=== PATIENT | female | born 1935 | race Caucasian/White ===

== ENCOUNTER → 2017-03-23 | Outpatient (CLI) | payer MEDICARE, BC ==
[~2017-03-23] MED LIST: ADVAIR 100/28 DISKU1 IH; ADVAIR IH; ASPIRIN 81M81 MG/TA2 PO; ASPIRIN E.C. 8181 MG PO; BENICAR; BENICAR 20MG TA20 MG PO; BENICAR HCT 12.1 TAB PO; BENICAR HCT 251 TAB PO; CALCIUM600 M2 PO; CEFTIN 250250 MG/TAB PO; CEPHALEXIN500 M1 PO; CIPRO 500MG TA500 MG PO; COLESTIPOL1 GM PO; COZAAR100 MG PO; ENTOCORT EC3 MG PO; FLAGYL500 MG PO; IMDUR 60MG60 MG/TAB PO; LEVAQUIN 750MG750 M1 PO; LEVOTHYROXIN0.025 MG; LEVOTHYROXINE0.05 MG PO; LIPITOR20 MG PO; LOMOTIL TAB 01 UDTAB PO; LOPERAMIDE2 MG PO; LOPRESSOR 550 MG/TAB PO; NORCO 325 MG-51 TAB PO; OPIUM PO; PERCOCET 325 MG1 TA2 PO; PLAVIX 75MG TAB75 MG PO; POTASSIUM CL 220 MEQ PO; PRIL40 PO; PROTONIX 40MG T40 MG PO; RT ADVAIR 128 DISKUS IH; SYNTHROID0.05 MG/TA PO; SYNTHROID0.125 MG/T PO; TOPROL PO; TOPROL XL 25MG25 MG PO; TOPROL XL 50MG50 MG PO; TOPROL XL25 MG PO; TOPROL XL50 MG PO; TRIMPEX100 MG PO; VITAMIN B12500 MCG PO; VITAMIN D31000 IU PO; ZOCOR; ZOCOR 20MG20 MG PO; ZOCOR 40MG40 MG PO
== END ==
LOC: COL.RAD 13:30
DX: M16.11 Unilateral primary osteoarthritis, right hip (principal)
CPT/HCPCS: J3301; Q9967

== ENCOUNTER → 2017-04-07 | Outpatient (CLI) | payer MEDICARE, BC | LOC: COL.RAD 03-29 14:00 | DX: Z01.812 Encounter for preprocedural laboratory examination (principal); G31.9 Degenerative disease of nervous system, unspecified | CPT/HCPCS: A9585 ==

== ENCOUNTER 2017-04-22 11:02 | Emergency (ER) | payer MEDICARE, BC ==
[~2017-04-22] VITALS: Ht 147.3 cm; Wt 77.3 kg
[2017-04-22 11:05] VITALS: TEMP 98.7
[2017-04-22 12:46] VITALS: BP 133/71; PULSE 81
== END 2017-04-22 12:53 | disposition home or self-care (01) ==
LOC: COL.ER 11:02
DX: S09.90XA Unspecified injury of head, initial encounter (principal); S70.01XA Contusion of right hip, initial encounter; M16.11 Unilateral primary osteoarthritis, right hip; W18.39XA Other fall on same level, initial encounter; W22.8XXA Striking against or struck by other objects, initial encounter; Y92.002 Bathroom of unspecified non-institutional (private) residence as the place of occurrence of the external cause

== ENCOUNTER → 2017-05-11 | Outpatient (CLI) | payer MEDICARE, BC ==
[2017-05-11 15:00] VITALS: BP 151/73; PULSE 84
[2017-05-11 15:15] VITALS: BP 146/75; PULSE 81
[2017-05-11 15:30] VITALS: BP 150/69; PULSE 80
[2017-05-11 16:15] VITALS: BP 133/64; PULSE 82
[2017-05-11 16:24] LABS: SYNOVIAL FL. MONONUCLEAR 45.8 % (0-75); SYNOVIAL FL. POLYMORPHONUCLEAR 54.2 % (0-25); SYNOVIAL FLUID RBC 29000 /mm3 (0-0); SYNOVIAL FLUID WBC 715 /mm3 (200-600)
[2017-05-11 16:28] LABS: SYNOVIAL FLUID APPEARANCE CLOUDY; SYNOVIAL FLUID COLOR BROWN
== END ==
LOC: COL.RAD 05-10 10:45
PROVIDERS: Orthopaedic Surgery
DX: M25.551 Pain in right hip (principal)
CPT/HCPCS: Q9967

== ENCOUNTER → 2021-12-25 | Outpatient (CLI) | payer MEDICARE, BC | LOC: ZCOL.LAB 15:25 | DX: I51.89 Other ill-defined heart diseases (principal) ==

== ENCOUNTER 2022-04-18 15:00 | Inpatient (IN) | payer MEDICARE, BC ==
[~2022-04-18] VITALS: Ht 149.9 cm; Wt 87.1 kg
[2022-04-18 15:35] LABS: BASO # 0.1 K/mm3 (0.0-0.2); EOS # 0.1 K/mm3 (0.0-0.7); EOS % 1.7 % (0.0-4.0); GRAN # 6.3 K/mm3 (1.4-6.5); GRAN % 75.7 % (42.2-75.2); HEMATOCRIT 38.8 % (37.0-47.0); HEMOGLOBIN 12.6 g/dl (12.5-16.0); LYMPH # 1.1 K/mm3 (1.2-3.4); MEAN CELL VOLUME 84 fl (80.0-100.0); MEAN CORPUSCULAR HEMOGLOBIN 27 pg (27-31); MEAN CORPUSCULAR HGB CONC 33 g/dl (33.0-37.0); MEAN PLATELET VOLUME 11.4 fl (7.4-10.4); MONO # 0.7 K/mm3 (0.1-0.6); MONO % 8.2 % (1.7-9.3); PLATELET COUNT 239 K/mm3 (130-400); RED BLOOD COUNT 4.63 M/mm3 (4.10-5.30); REDCELL DISTRIBUTION WIDTH-CV 13.2 % (11.5-14.5)
[2022-04-18 15:46] LABS: INR 1.2 (0.8-3.0); PROTHROMBIN TIME 13.8 SECONDS (9.7-12.8)
[2022-04-18 15:48] LABS: PARTIAL THROMBOPLASTIN TIME 34.3 SECONDS (26.0-37.0)
[2022-04-18 15:54] LABS: COLLECTION METHOD CLEAN CATCH
[2022-04-18 15:54] LABS: ALANINE AMINOTRANSFERASE 18 U/L (0-55); ALBUMIN 3.7 gm/dL (3.4-4.8); ALKALINE PHOSPHATASE 88 U/L (40-150); ANION GAP 12 mmol/L (7-16); AST,SGOT 18 U/L (5-34); BLOOD UREA NITROGEN 10 mg/dL (10-20); CALCIUM 9.5 mg/dL (8.4-10.2); CARBON DIOXIDE 26 mmol/L (23-31); CHLORIDE 103 mmol/L (98-107); CREATININE, serum 0.79 mg/dL (0.57-1.11); GLUCOSE 123 mg/dL (70-99); POTASSIUM 3.1 mmol/L (3.5-4.5); SODIUM 141 mmol/L (136-145); TOTAL PROTEIN 7.3 gm/dL (6.2-8.1)
[2022-04-18 15:55] LABS: URINE APPEARANCE Clear (CLEAR/HAZY); URINE COLOR Yellow (YELLOW)
[2022-04-18 15:57] LABS: URINE BLOOD TRACE-INTACT (NEGATIVE); URINE GLUCOSE Negative (NEGATIVE); URINE KETONE Negative (NEGATIVE); URINE NITRATE Negative (NEGATIVE); URINE PROTEIN(semi-quant) Negative (NEGATIVE); URINE UROBILINOGEN 0.2 E.U/dL (0.2-1.0)
[2022-04-18 16:01] LABS: ALCOHOL(ethanol),MEDICAL < 10 mg/dL (0-10)
[2022-04-18 16:01] LABS: SQUAMOUS EPITHELIAL None Seen /hpf (0-10); URINE BACTERIA None Seen /hpf (NONE SEEN)
[2022-04-18] MEDS ORDERED: ENTRESTO 24 MG1 EACH PO (21:37)
[2022-04-18] MEDS ORDERED: ISOSORBIDE MON120 MG PO (21:37)
[2022-04-18] MEDS ORDERED: LOPRESSOR100 MG PO (21:37)
[2022-04-18] MEDS ORDERED: JARDIANCE10 PO (21:38)
[2022-04-18 22:14] VITALS: BP 168/72; PULSE 86; TEMP 98.8
[2022-04-18] MEDS ORDERED: NORCO 325 MG-51 TAB PO (22:18)
[2022-04-19 02:41] LABS: MAGNESIUM 1.6 mg/dL (1.6-2.6)
[2022-04-19 03:02] LABS: TSH w REFLEX 0.287 uIU/mL (0.350-4.940)
[2022-04-19 03:07] LABS: PHOSPHOROUS 2.7 mg/dL (2.3-4.7)
[2022-04-19 03:59] VITALS: BP 155/83; PULSE 93; TEMP 98
--- NOTE | 2022-04-19 06:34 | NUR ---
PATIENT RESTED QUIETLY THIS SHIFT. PATIENT HAD PERIODS OF CALLING OUT AND BEING CONCERNED ABOUT NEEDING TO GET TO DOCTOR'S APPT TODAY. PATIENT HAD CRITICAL TROPONIN. PROVIDER NOTIFIED WITH NO NEW ORDERS. PATIENT ALSO NOTED TO BE SPEAKING IN OTHER LANGUAGES AT TIMES. PATIENT GIVEN PRN TYLENOL FOR C/O HEADACHE.
[2022-04-19 07:26] VITALS: BP 155/71; PULSE 88
[2022-04-19 07:26] LABS: BASO # 0.1 K/mm3 (0.0-0.2); BASO % 0.8 % (0.0-2.0); EOS # 0.4 K/mm3 (0.0-0.7); EOS % 4.7 % (0.0-4.0); GRAN # 4.9 K/mm3 (1.4-6.5); GRAN % 64.3 % (42.2-75.2); HEMOGLOBIN 11.3 g/dl (12.5-16.0); LYMPH # 1.3 K/mm3 (1.2-3.4); LYMPH % 16.8 % (20.0-51.0); MEAN CELL VOLUME 88 fl (80.0-100.0); MEAN CORPUSCULAR HEMOGLOBIN 27 pg (27-31); MEAN CORPUSCULAR HGB CONC 31 g/dl (33.0-37.0); MEAN PLATELET VOLUME 12.1 fl (7.4-10.4); PLATELET COUNT 217 K/mm3 (130-400); RED BLOOD COUNT 4.15 M/mm3 (4.10-5.30); REDCELL DISTRIBUTION WIDTH-CV 13.4 % (11.5-14.5)
[2022-04-19 07:28] LABS: C-REACTIVE PROTEIN 1.6 mg/dL (0.00-0.50); CALCIUM 8.7 mg/dL (8.4-10.2); CHOLESTEROL RISK RATIO 2.5; CREATININE, serum 0.78 mg/dL (0.57-1.11); HEMATOCRIT 36.7 % (37.0-47.0); POTASSIUM 3.5 mmol/L (3.5-4.5)
[2022-04-19 11:41] VITALS: BP 136/74; PULSE 86; TEMP 99
--- NOTE | 2022-04-19 15:10 | NUR ---
fruit worker met with patient "Sabra" to discuss discharge plan. Patients daughter Laura ([phone]) and niece Radha are present at bedside. Patient is extremely hard of hearing. Patient lives at home in an apartment alone here in [place]. She is independent with her ADL's and IADL's. PCP is and she utilizes [facility] for prescriptions. Patient utilizes a rollator walker to assist with mobility and has no home oxygen needs. She does have a DPO[facility] established listing both Daniela and her son Ronnie ([phone]). SW discussed possible post acute rehab. Laura states that she is in agreement with this and would like a referral sent to [facility], [facility] and our [facility]. Discharge plan: SNF
[2022-04-19 16:06] VITALS: BP 141/89; PULSE 83; TEMP 97.5
--- NOTE | 2022-04-19 19:30 | NUR ---
Tx given via mask, tolerated well. Pt stated that she prefers to use her home inhaler and will have her son bring it in tomorrow. Pt on room air before and after tx.
[2022-04-19 20:08] VITALS: BP 179/73; PULSE 95; TEMP 98.6
--- NOTE | 2022-04-19 22:43 | NUR ---
Patient alert and oriented, INT to LFA and RAC, remains on room air, head to to toe assessment done, complained of left knee pain scheduled Troy given, still with kelly catheter draining clear yellow urine, noted weakness to left upper extremeties and both lower extremeties, no further needs or concerns at this time, will continue to monitor, call light and personal items within reach.
[2022-04-19 23:53] VITALS: BP 156/92; PULSE 90; TEMP 98.9
--- NOTE | 2022-04-20 00:37 | NUR ---
Patient sleeping in bed at this time, looks comfortable, call light and personal items within reach.
[2022-04-20 04:16] VITALS: BP 150/60; PULSE 90; TEMP 99.3
--- NOTE | 2022-04-20 04:37 | NUR ---
Patient noted to be speaking AMHARIC and keeps calling "DIYOS" which means God, informed Sudha the PA due to patient wanting to have a biofreeze for her left knee and got an order for Bengay.
--- NOTE | 2022-04-20 06:14 | NUR ---
Patient kept talking kiswahili and was pointing to her bottom, this nurse was trying to check her bottom but refuses to turn and screamed, charge nurse made aware. Patient also refused to take her pills this morning charge nurse informed as well.
[2022-04-20 06:22] LABS: BASO % 0.5 % (0.0-2.0); EOS # 0.4 K/mm3 (0.0-0.7); EOS % 5.1 % (0.0-4.0); GRAN % 69.8 % (42.2-75.2); HEMOGLOBIN 10.9 g/dl (12.5-16.0); LYMPH # 1.1 K/mm3 (1.2-3.4); LYMPH % 12.2 % (20.0-51.0); MEAN CELL VOLUME 88 fl (80.0-100.0); MEAN CORPUSCULAR HEMOGLOBIN 27 pg (27-31); MEAN CORPUSCULAR HGB CONC 31 g/dl (33.0-37.0); MONO % 12.1 % (1.7-9.3); PLATELET COUNT 204 K/mm3 (130-400); RED BLOOD COUNT 4.02 M/mm3 (4.10-5.30); REDCELL DISTRIBUTION WIDTH-CV 13.2 % (11.5-14.5)
[2022-04-20 06:31] LABS: HEMATOCRIT 35.4 % (37.0-47.0)
[2022-04-20 06:44] LABS: CALCIUM 8.9 mg/dL (8.4-10.2); CREATININE, serum 0.79 mg/dL (0.57-1.11); MAGNESIUM 1.6 mg/dL (1.6-2.6); POTASSIUM 3.7 mmol/L (3.5-4.5)
[2022-04-20 07:40] VITALS: BP 174/63; PULSE 94; TEMP 98.5
--- NOTE | 2022-04-20 09:26 | NUR ---
Pt. sitting up in bed. Pt. is alert and confused at this time. Pt. speaking in mexican. When this nurse tells the pt. "I don't speak mexican". Then the pt. will sometimes speak martiniquais. Attempted to give am meds, Pt. first in mexican then in martiniquais, "I am not a child, I do not need fed". Attempted again to get pt. to take the spoon of crushed meds and pt. refused. Unable to give am meds. Pt. also refused to turn for skin assessment. Will continue to monitor.
--- NOTE | 2022-04-20 10:55 | NUR ---
IVETTE consulted [facility] Director, Viki. IVETTE contacted and faxed a referral to [facility] and [facility] Awaiting screens.
[2022-04-20 12:45] VITALS: BP 175/64; PULSE 100; TEMP 99.2
[2022-04-20 17:27] VITALS: BP 159/66; PULSE 88; TEMP 98.8
[2022-04-20 20:20] VITALS: BP 165/56; PULSE 96; TEMP 98.4
--- NOTE | 2022-04-20 22:53 | NUR ---
PT A&OX3 RESTING IN BED. MEDS GIVEN AND ASSESSMENT COMPLETE. ROPER TO DD W YELLOW URINE OUTPUT. INT TO RAC AND LF. VSS AND TELE IN PLACE. NO NEEDS AT THIS TIME. CALL LIGHT WITHIN REACH.
[2022-04-21] VITALS: BP 163/64; PULSE 71
[2022-04-21 04:00] VITALS: BP 189/59; PULSE 77; TEMP 98.4
[2022-04-21 06:55] LABS: BASO # 0.1 K/mm3 (0.0-0.2); BASO % 0.6 % (0.0-2.0); EOS # 0.9 K/mm3 (0.0-0.7); GRAN # 5.2 K/mm3 (1.4-6.5); GRAN % 61.9 % (42.2-75.2); HEMOGLOBIN 11.6 g/dl (12.5-16.0); LYMPH # 1.3 K/mm3 (1.2-3.4); LYMPH % 15.2 % (20.0-51.0); MEAN CELL VOLUME 85 fl (80.0-100.0); MEAN CORPUSCULAR HEMOGLOBIN 28 pg (27-31); MEAN CORPUSCULAR HGB CONC 33 g/dl (33.0-37.0); MEAN PLATELET VOLUME 11.8 fl (7.4-10.4); MONO # 0.9 K/mm3 (0.1-0.6); MONO % 10.8 % (1.7-9.3); PLATELET COUNT 212 K/mm3 (130-400); RED BLOOD COUNT 4.18 M/mm3 (4.10-5.30); REDCELL DISTRIBUTION WIDTH-CV 13.2 % (11.5-14.5)
[2022-04-21 07:20] LABS: CALCIUM 8.9 mg/dL (8.4-10.2); CREATININE, serum 0.79 mg/dL (0.57-1.11); POTASSIUM 3.8 mmol/L (3.5-4.5)
[2022-04-21 07:22] LABS: HEMATOCRIT 35.4 % (37.0-47.0)
[2022-04-21 07:51] VITALS: PULSE 80; TEMP 99.1
--- NOTE | 2022-04-21 08:00 | NUR ---
Pt. sitting up in bed. Pt. is alert and oriented but forgetful. Pt. does get very upset with staff when ever we attempt to reposition or take vital signs. Pt. Does take am meds today. INT's to lt. forearm and rt. ac. Pt. denies needs, call light within reach.
[2022-04-21 09:42] VITALS: BP 152/82
[2022-04-21] MEDS ORDERED: PLAVIX 75MG TAB75 MG PO (09:49)
[2022-04-21] MEDS ORDERED: ASPIRIN E.C. 8181 MG PO (09:50)
[2022-04-21] MEDS ORDERED: NORVASC 5MG5 MG/TAB PO (09:50)
[2022-04-21] MEDS ORDERED: LIPITOR 40MG TA40 MG PO (09:50)
--- NOTE | 2022-04-21 11:04 | NUR ---
IVETTE attended clinical rounds. The team is ready to discharge the patient today. IVETTE contacted [facility] and [facility] and they are both able to accept the patient today. IVETTE attempted to contact the patient's daughter, Laura. IVETTE left her a voicemail. IVETTE then contacted the patient's son, Ronnie, to update and to obtain preference for facility. Ronnie chose [facility]. IVETTE read the IM form outloud to Ronnie over the phone. Ronnie verbalized understanding and gave SW approval to sign the form on his behalf. Alex, at [facility], then notified IVETTE that he spoke to Ronnie and Ronnie has changed his preference to them. IVETTE met with the patient and Ronnie to follow up. Ronnie asked the patient what her preference was. The patient did not have a preference. He states that he did talk to [facility], but has not heard from [facility] yet. He would like to go with whatever is set up. IVETTE informed him how both facilities can take the patient today. Ronnie states that they will just go with his first choice, [facility]. He is in agreement to a 1300 cigar packer and picker today. IVETTE updated both facilities. The patient is to discharge today, 04/21, to [facility] for a skilled stay. Transportation was scheduled at 1300, via [facility]. IVETTE informed the son and RN of the time. No additional needs at this time.
[2022-04-21 12:19] VITALS: BP 131/39; PULSE 72; TEMP 98.6
--- NOTE | 2022-04-21 13:28 | NUR ---
INT's to lt. forearm and rt. ac removed. Borja catheter discontinued. Pt. reports that she want to sit on the commode. 2 assist to get pt. to commode. [place] care and bedbath completed also. Pt. assisted with dressing. Pt. then assisted back to bed with 3 assist and gait belt. Waiting for [facility] transportation for transfer.
--- NOTE | 2022-04-21 14:30 | NUR ---
[facility] nursing staff called and given report of pt.
--- NOTE | 2022-04-21 14:45 | NUR ---
route cdl driver for [facility] here. Pt. transferred to the wheel chair with 3 assist. Pt. assisted out with [employer].
== END 2022-04-21 14:45 | DRG 64 ==
LOC: COL.ER 15:00 → SURG 18:19
PROVIDERS: Emergency Medicine; Hospitalist; Nurse Practitioner Family; Physician Assistant; ADMIT Internal Medicine
DX: I63.531 Cerebral infarction due to unspecified occlusion or stenosis of right posterior cerebral artery (principal); I21.4 Non-ST elevation (NSTEMI) myocardial infarction; I50.32 Chronic diastolic (congestive) heart failure; G81.94 Hemiplegia, unspecified affecting left nondominant side; E78.5 Hyperlipidemia, unspecified; E87.6 Hypokalemia; Z66 Do not resuscitate; I25.10 Atherosclerotic heart disease of native coronary artery without angina pectoris; I27.20 Pulmonary hypertension, unspecified; Z20.822 Contact with and (suspected) exposure to COVID-19; J45.909 Unspecified asthma, uncomplicated; K21.9 Gastro-esophageal reflux disease without esophagitis; E03.9 Hypothyroidism, unspecified; E11.65 Type 2 diabetes mellitus with hyperglycemia; I11.0 Hypertensive heart disease with heart failure; H53.47 Heteronymous bilateral field defects; H54.7 Unspecified visual loss; R51.9 Headache, unspecified; R29.701 NIHSS score 1; R27.0 Ataxia, unspecified; I69.320 Aphasia following cerebral infarction; Z90.710 Acquired absence of both cervix and uterus; Z90.49 Acquired absence of other specified parts of digestive tract; Z95.1 Presence of aortocoronary bypass graft; Z88.6 Allergy status to analgesic agent; Z88.1 Allergy status to other antibiotic agents; Z79.890 Hormone replacement therapy; Z88.0 Allergy status to penicillin; Z88.8 Allergy status to other drugs, medicaments and biological substances; Z23 Encounter for immunization
CPT/HCPCS: A9270; J1650; J2405; J7030; Q9967